=== PATIENT | female | born 1955 | race Caucasian/White ===

== ENCOUNTER 2024-05-21 10:54 | Day surgery (SDC) | payer MEDICARE, OTHER ==
[2024-05-20 09:00] VITALS: BMI 25.7
[~2024-05-21 10:54] MED LIST: Bupivacaine/Epinephrine 0.25% 30 ML VIAL ONE; CEFAZOLIN 2 GM VIAL ONE; Dexamethasone 20 MG/5 ML VIAL ONE; Lidocaine 1% PF 5 ML VIAL ONE; Ondansetron PF 4 MG/2 ML Vial ONE; PROPOFOL 20 ML ONE; Rocuronium Bromide 10 MG/ML (10ML VIAL) ONE; Sevoflurane 250 ML INH ANEST BOTTLE ONE; ePHEDrine Sulfate 50 MG/10 ML VIAL ONE; fentaNYL 50 mcg/mL 1 mL Vial ONE
[2024-05-21] MEDS ORDERED: Ketorolac Tromethamine 30 MG (1 mL) VIAL ONE (11:27)
[2024-05-21] MEDS ORDERED: SUGAMMADEX SODIUM 200 MG/2 ML VIAL ONE (11:27)
[2024-05-21] MEDS ORDERED: fentaNYL 50 mcg/mL 1 mL Vial ONE (12:13)
[2024-05-21] MEDS ORDERED: HYDROcodone/Acetaminophen 5/325 mg Tablet ONE (12:44)
== END 2024-05-21 13:35 | disposition home or self-care (01) ==
LOC: CSHSDC 10:54
PROVIDERS: ATTEND Surgery
PROC: 0YQ64ZZ Repair Left Inguinal Region, Percutaneous Endoscopic Approach (ICD-10-PCS; principal; 2024-05-21)
DX: K40.90 Unilateral inguinal hernia, without obstruction or gangrene, not specified as recurrent (principal); K21.9 Gastro-esophageal reflux disease without esophagitis; Z79.899 Other long term (current) drug therapy
CPT/HCPCS: 49650; C1781; J1100; J1885; J2405; J2704; J3010